=== PATIENT | male | born 1995 | race African-American/Black ===

== ENCOUNTER 2018-10-20 22:27 | Emergency (ER) | payer MEDICAID ==
[~2018-10-20] VITALS: Ht 190.5 cm; Wt 90.3 kg
--- NOTE | 2018-10-20 22:41 | NUR ---
SEEN AND EXAMINED BY DR. FARR.
--- NOTE | 2018-10-20 22:47 | NUR ---
PROTECTIVE SIGNAL REPAIRER HELPER AT BEDSIDE FOR XRAY.
[2018-10-20] MEDS ORDERED: HYDROCODONE/APAP 5/325MG 1 EACH TABLET ONE (22:48)
[2018-10-20] MEDS ORDERED: IBUPROFEN 400 MG TABLET ONE (22:49)
[2018-10-20] MEDS ORDERED: IBUPROFEN 400 MG TABLET PO ONE (23:00)
[2018-10-20] MEDS ORDERED: HYDROCODONE/APAP 5/325MG 1 EACH TABLET PO ONE (23:00)
--- NOTE | 2018-10-20 23:29 | NUR ---
SUGAR TONG SPLINT DONE BY PATIENT SAFETY OFFICER.
--- NOTE | 2018-10-20 23:53 | NUR ---
APPLIED SPLINT TO LEFT LOWER ARM ORDERED. SPLINT CARE INSTRUCTIONS GIVEN TO PATIENT - VERBALIZED UNDERSTANDING.
--- NOTE | 2018-10-21 00:06 | NUR ---
D/C PATIENT WITH LEFT LOWER ARM SPLINTED STABILIZED WITH SLING. HEALTH TEACHINGS, AND SPLINT CARE PROVIDER PRINTED AND EXPLAINED TO PATIENT. X-RAY CD AND PAIN MEDS PRESCRIPTION GIVEN TO PATIENT. INSTRUCTED PATIENT TO SEE AN ORTHOPEDICS, LIST OF HOSPITALS PROVIDED. ALL QUESTIONS ANSWERED WITH SATISFACTION. PATIENT LEFT THE FACILITY AT THIS TIME, AMBULATORY.
[2018-10-21 00:12] VITALS: BP 120/71
== END 2018-10-21 00:06 | disposition home or self-care (01) ==
LOC: ER 22:31
DX: S52.692A Other fracture of lower end of left ulna, initial encounter for closed fracture (principal); S52.615A Nondisplaced fracture of left ulna styloid process, initial encounter for closed fracture; J45.909 Unspecified asthma, uncomplicated; V00.131A Fall from skateboard, initial encounter; Y93.51 Activity, roller skating (inline) and skateboarding; Y92.89 Other specified places as the place of occurrence of the external cause; Y99.8 Other external cause status
CPT/HCPCS: 73110

== ENCOUNTER 2019-01-03 10:41 | Emergency (ER) | payer MEDICAID ==
[~2019-01-03] VITALS: Ht 190.5 cm; Wt 90.7 kg
--- NOTE | 2019-01-03 10:50 | NUR ---
C/O L ARM PAIN S/P GLF WHILE PLAYING BASKETBALL. PATIENT A/OX4, NO DSITRESS NOTED, KEPT COMFORTABLE, ABLE TO MOVE LEFT ARM, + ROM.
[2019-01-03] MEDS ORDERED: HYDROCODONE/APAP 5/325MG 1 EACH TABLET PO ONE (11:00)
[2019-01-03] MEDS ORDERED: ONDANSETRON 4 MG TAB.RAPDIS PO ONE (11:00)
[2019-01-03] MEDS ORDERED: HYDROCODONE/APAP 5/325MG 1 EACH TABLET ONE (11:03)
[2019-01-03] MEDS ORDERED: ONDANSETRON 4 MG TAB.RAPDIS ONE (11:04)
--- NOTE | 2019-01-03 12:07 | NUR ---
Patient discharged to home in stable condition. Written and verbal after care instructions given. Patient verbalizes understanding of instruction.
[2019-01-03 12:08] VITALS: BP 132/70
== END 2019-01-03 12:08 | disposition home or self-care (01) ==
LOC: ER 10:41
DX: S52.612A Displaced fracture of left ulna styloid process, initial encounter for closed fracture (principal); J45.909 Unspecified asthma, uncomplicated; X50.1XXA Overexertion from prolonged static or awkward postures, initial encounter; Y93.67 Activity, basketball; Y92.89 Other specified places as the place of occurrence of the external cause; Y99.8 Other external cause status
CPT/HCPCS: 29125; 73090; 73120; 99283; Q0162